=== PATIENT | female | born 2000 | race Caucasian/White ===

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

== ENCOUNTER 2022-03-03 14:03 | Emergency (ER) | payer OTHER ==
[2022-03-03 14:25] VITALS: BP 154/81; PULSE 108
== END 2022-03-03 15:15 | disposition home or self-care (01) ==
LOC: DL.ED 14:03
DX: O26.852 Spotting complicating pregnancy, second trimester (principal); Z3A.15 15 weeks gestation of pregnancy; Z91.018 Allergy to other foods
CPT/HCPCS: 76815; 81001; 99284

== ENCOUNTER 2022-08-31 07:36 | Inpatient (IN) | payer OTHER, MEDICAID ==
[2022-08-31] MEDS ORDERED: Sodium Chloride 0.9% 10 ML Syringe FLUSH PRN (08:40)
[2022-08-31] MEDS ORDERED: Lidocaine 1% 30 ML SDV INJECT PRN (08:40)
[2022-08-31] MEDS ORDERED: Ondansetron 4 MG/2 ML SDV IVPUSH PRN (08:40)
[2022-08-31] MEDS ORDERED: Methylergonovine 0.2 MG/1 ML Amp IM PRN (08:40)
[2022-08-31] MEDS ORDERED: Acetaminophen 325 MG Tab PO PRN ×2 (08:40→21:38)
[2022-08-31] MEDS ORDERED: Carboprost Tromethamine 250 MCG/1 ML Amp IM PRN (08:40)
[2022-08-31] MEDS ORDERED: Misoprostol 400 MCG (4 X 100 MCG TAB) RECTAL PRN (08:40)
[2022-08-31] MEDS ORDERED: Tranexamic Acid 1,000 MG in Sodium Chloride 0.9% 100 ML IV PRN (08:40)
[2022-08-31] MEDS ORDERED: Lactated Ringers 1,000 ML IV ONE (08:40)
[2022-08-31] MEDS ORDERED: fentaNYL 100 MCG/2 ML SDV IVPUSH PRN (08:40)
[2022-08-31] MEDS: Lactated Ringers 1,000 ML IV SCH ×3 (08:45→19:04)
[2022-08-31 08:49] LABS: HEMATOCRIT 36.3 % (37.0-47.0); HEMOGLOBIN 12.3 g/dL (12.0-16.0); MEAN CORPUSCULAR HEMOGLOBIN 31.6 pg (27.0-34.0); MEAN CORPUSCULAR HGB CONC 33.9 g/dL (33.0-35.0); MEAN CORPUSCULAR VOLUME 93.3 fL (80-100); RED BLOOD CELL COUNT 3.89 10^6/uL (4.2-5.4); WHITE BLOOD CELL COUNT,WBC 11.7 10^3/uL (5.0-10.0)
[2022-08-31] MEDS: Oxytocin/Normal Saline 30 UNIT/500 ML BAG IV SCH ×2 (09:00→22:35)
[2022-08-31] MEDS ORDERED: fentaNYL 100 MCG/2 ML SDV ONE (16:34)
[2022-08-31] MEDS ORDERED: EPINEPHrine 1 MG/ML SDV ONE (16:34)
[2022-08-31] MEDS ORDERED: Sodium Bicarbonate 4.2% 2.5 MEQ/5 ML SDV ONE (16:35)
[2022-08-31] MEDS ORDERED: Oxytocin 10 Units/1 ML SDV IM PRN (21:38)
[2022-08-31] MEDS ORDERED: Benzocaine/Menthol 20%-0.5% Spray 78 GM Cannister TOP PRN (21:38)
[2022-08-31] MEDS ORDERED: Simethicone 80 MG Tab.Chew PO PRN (21:38)
[2022-08-31] MEDS ORDERED: Witch Hazel Medicated Pads 100/Jar TOP PRN (21:49)
[2022-09-01] MEDS: Ibuprofen 800 MG Tab PO PRN ×3 (05:11→23:07)
[2022-09-01 07:07] LABS: HEMATOCRIT 33.6 % (37.0-47.0); HEMOGLOBIN 11.2 g/dL (12.0-16.0); MEAN CORPUSCULAR HEMOGLOBIN 31.2 pg (27.0-34.0); MEAN CORPUSCULAR HGB CONC 33.3 g/dL (33.0-35.0); MEAN CORPUSCULAR VOLUME 93.6 fL (80-100); RED BLOOD CELL COUNT 3.59 10^6/uL (4.2-5.4); WHITE BLOOD CELL COUNT,WBC 12.3 10^3/uL (5.0-10.0)
[2022-09-01] MEDS: Prenatal Multivitamin with Calcium/Folic Acid/Iron Tab PO SCH (08:30)
[2022-09-01] MEDS: Docusate Sodium 100 MG Cap PO PRN ×2 (08:30→23:07)
[2022-09-02] MEDS: Prenatal Multivitamin with Calcium/Folic Acid/Iron Tab PO SCH (08:10)
[2022-09-02] MEDS: Ibuprofen 800 MG Tab PO PRN (08:10)
[2022-09-02] MEDS: Docusate Sodium 100 MG Cap PO PRN (08:10)
[2022-09-02] MEDS ORDERED: Glycopyrrolate 0.2 MG/ML 2 ML SDV IV ONE (11:29)
[2022-09-02] MEDS ORDERED: Midazolam 1 MG/ML 2 ML SDV IV ONE (11:29)
[2022-09-02] MEDS ORDERED: Ketorolac 30 MG/ML SDV IVPUSH ONE (11:29)
[2022-09-02] MEDS ORDERED: Sodium Chloride 0.9% 20 ML SDV IV ONE (11:29)
[2022-09-02] MEDS ORDERED: Sodium Bicarbonate 4.2% 2.5 MEQ/5 ML SDV IV ONE (11:29)
[2022-09-02] MEDS ORDERED: Sodium Chloride 0.9% 10 ML SDV IV ONE (11:29)
[2022-09-02] MEDS ORDERED: fentaNYL 100 MCG/2 ML SDV IV ONE (11:29)
[2022-09-02] MEDS ORDERED: Dexamethasone 4 MG/ML SDV IV ONE (11:29)
[2022-09-02] MEDS ORDERED: EPINEPHrine 1 MG/ML SDV IV ONE (11:29)
[2022-09-02] MEDS ORDERED: Dexmedetomidine 200 MCG/2 ML SDV IV ONE (11:29)
[2022-09-02] MEDS ORDERED: Propofol 200 MG/20 ML SDV IV ONE (11:29)
[2022-09-02 11:44] VITALS: BP 131/74; PULSE 98
== END 2022-09-02 11:30 | disposition home or self-care (01) | DRG 806 ==
LOC: DL.OBCHECK 07:36 → INTOOBSV 07:37 → DL.OB 07:37 → OBSVTOIN 20:57 → DL.OB 20:57
PROVIDERS: ADMIT Family Medicine; ATTEND Family Medicine
PROC: 10E0XZZ Delivery of Products of Conception, External Approach (ICD-10-PCS; principal; 2022-08-31)
PROC: 10907ZC Drainage of Amniotic Fluid, Therapeutic from Products of Conception, Via Natural or Artificial Opening (ICD-10-PCS; 2022-08-31)
PROC: 0UQG7ZZ Repair Vagina, Via Natural or Artificial Opening (ICD-10-PCS; 2022-08-31)
DX: O48.0 Post-term pregnancy (principal); O71.4 Obstetric high vaginal laceration alone; Z37.0 Single live birth; Z3A.40 40 weeks gestation of pregnancy; Z91.018 Allergy to other foods; Z91.09 Other allergy status, other than to drugs and biological substances; Z79.899 Other long term (current) drug therapy; Z86.16 Personal history of COVID-19; O99.02 Anemia complicating childbirth
CPT/HCPCS: 01967; 36415; 51701; 59409; 85027; A9270-GY; J0171; J1100; J1885; J2250; J2405; J2590; J2704; J3010; J3490; J7120

== ENCOUNTER 2023-09-29 04:26 | Emergency (ER) | payer MEDICAID, OTHER ==
[2023-09-29] MEDS: Ondansetron 4 MG Tab.DIS PO ONE (07:10)
[2023-09-29 08:22] VITALS: BP 144/70; PULSE 98
== END 2023-09-29 07:30 | disposition home or self-care (01) ==
LOC: DL.ED 04:26
DX: F10.120 Alcohol abuse with intoxication, uncomplicated (principal); Z91.018 Allergy to other foods; Z91.09 Other allergy status, other than to drugs and biological substances; Z79.899 Other long term (current) drug therapy; Z86.16 Personal history of COVID-19; Y90.9 Presence of alcohol in blood, level not specified
CPT/HCPCS: 99284; A9270